=== PATIENT | male | born 1980 | race Caucasian/White ===

== ENCOUNTER 2017-11-01 07:49 | Day surgery (SDC) | payer BC ==
[2017-11-01] MEDS ORDERED: MIDAZOLAM 2 MG/2 ML INJ ONE (09:54)
[2017-11-01] MEDS ORDERED: PROPOFOL INJ 200 MG/20 ML VIAL IV ONE (09:54)
[2017-11-01] MEDS ORDERED: FENTANYL CITRATE INJ/PF 100 MCG/2 ML AMPUL IV PRN ×3 (11:10)
[2017-11-01] MEDS ORDERED: OXYCODONE-ACETAMINOPHEN 5-325 MG TABLET PO PRN ×2 (11:10)
[2017-11-01] MEDS ORDERED: PROMETHAZINE HCL INJ 25 MG/1 ML VIAL IV PRN ×2 (11:10)
[2017-11-01] MEDS ORDERED: DIPHENHYDRAMINE HCL 50 MG/ML VIAL IV PRN (11:10)
[2017-11-01] MEDS ORDERED: MEPERIDINE HCL/PF INJ 25 MG/1 ML DISP.SYRIN IV PRN (11:10)
--- NOTE | 2017-11-01 12:00 | Operative Report ---
Operative Report DATE OF SURGERY: 11/01/17 Operative Report: the risks, benefits and alternatives of the procedure are explained to the patient in detail patient is taken to the OR suite and time out is called Propofol sedation is provided a rectal exam is done which did not reveal any masses, tears or fissures An Olympus videoscope is inserted into the patient's rectum it is advanced all the way to the cecum prep is good terminal ileum is intubated all of the segments of the colon are visualized retroflexion is done PREOPERATIVE DIAGNOSIS: abdominal pain. family history of colon cancer POSTOPERATIVE DIAGNOSIS: terminal ileitis, biopsy. internal hemorrhoids OPERATION: colonoscopy with biopsy SURGEON: SANNA JOHN ANESTHESIA: LMAC TISSUE REMOVED OR ALTERED: as noted above COMPLICATIONS: none ESTIMATED BLOOD LOSS: none INTRAOPERATIVE FINDINGS: as described above PROCEDURE: patient tolerated the procedure well no post procedure complications patient is discharged in good condition discharge date:11/01/17 discharge diet: regular discharge activity: regular 2-3 week follow up to discuss findings patient is instructed to call if there is any post procedure complications will wait on pathology
[2017-11-01 13:31] VITALS: BP 139/78
== END 2017-11-01 12:55 | disposition home or self-care (01) ==
LOC: OROUT 07:49
PROVIDERS: ATTEND Internal Medicine Gastroenterology
DX: K52.9 Noninfective gastroenteritis and colitis, unspecified (principal); K64.8 Other hemorrhoids; I10 Essential (primary) hypertension; I49.9 Cardiac arrhythmia, unspecified; Z87.891 Personal history of nicotine dependence; Z79.899 Other long term (current) drug therapy; Z88.0 Allergy status to penicillin
CPT/HCPCS: 45380; 88305 ×2; J2250; J2704; 811